=== PATIENT | female | born 1990 | race Caucasian/White ===

== ENCOUNTER 2017-11-27 21:57 | Emergency (ER) | payer OTHER ==
[~2017-11-27] VITALS: Ht 172.7 cm; Wt 136.5 kg
[2017-11-27 22:00] VITALS: BP 137/77
--- NOTE | 2017-11-27 23:39 | NUR ---
PATIENT TO ER BED 4.
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
[2017-11-28 03:20] LABS: BARBITURATE, URINE NEG. ng/ml (NEG <=200); BENZODIAZEPINE, URINE NEG. ng/mL (NEG <=200); CANNABINOID, URINE NEG. ng/mL (NEG <=50); COCAINE, URINE NEG. ng/mL (NEG <=300); OPIATE, URINE NEG. ng/mL (NEG <=2000); PHENCYCLIDINE SCREEN,URINE NEG. ng/mL (NEG <=25)
[2017-11-28 04:27] VITALS: BP 112/66
== END 2017-11-28 04:25 | disposition home or self-care (01) ==
LOC: MED 21:57
DX: F41.0 Panic disorder [episodic paroxysmal anxiety] (principal)
CPT/HCPCS: 80305; 99283

== ENCOUNTER 2018-10-18 22:58 | Emergency (ER) | payer OTHER ==
[~2018-10-18] VITALS: Ht 172.7 cm; Wt 145.4 kg
[2018-10-18 23:01] VITALS: BP 107/60
--- NOTE | 2018-10-18 23:01 | NUR ---
TO BED # 04 AMBULATORY
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
--- NOTE | 2018-10-18 23:22 | NUR ---
Dr. Bustillo examining patient.
[2018-10-18] MEDS ORDERED: IBUPROFEN 800 MG TAB PO ONE (23:30)
[2018-10-18] MEDS ORDERED: SULFAMETH/TRIMETH DS 800/160MG 1 TAB PO ONE (23:30)
--- NOTE | 2018-10-18 23:40 | NUR ---
Patient discharged with v/s stable. Written and verbal after care instructions given and explained. Patient alert, oriented and verbalized understanding of instructions. Ambulatory with steady gait. All questions addressed prior to discharge. ID band removed. Patient advised to follow up with PMD. Rx of motrin and bactrim given. Patient educated on indication of medication including possible reaction and side effects. Opportunity to ask questions provided and answered.
[2018-10-18 23:41] VITALS: BP 107/60
== END 2018-10-18 23:40 | disposition home or self-care (01) ==
LOC: MED 22:58
DX: S40.862A Insect bite (nonvenomous) of left upper arm, initial encounter (principal); L03.114 Cellulitis of left upper limb; J45.909 Unspecified asthma, uncomplicated; W57.XXXA Bitten or stung by nonvenomous insect and other nonvenomous arthropods, initial encounter; Y93.89 Activity, other specified; Y92.89 Other specified places as the place of occurrence of the external cause; Y99.8 Other external cause status
CPT/HCPCS: 99283

== ENCOUNTER 2020-07-20 22:45 | Emergency (ER) | payer MEDICAID, OTHER ==
[~2020-07-20] VITALS: Ht 172.7 cm; Wt 152.4 kg
[2020-07-20 23:01] VITALS: BP 152/98
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
--- NOTE | 2020-07-20 23:32 | NUR ---
ERMD AT BEDSIDE.
[2020-07-20] MEDS ORDERED: ALBUTEROL SULFATE/IPRATROPIU 3 ML SOL IH ONE (23:35)
--- NOTE | 2020-07-20 23:37 | NUR ---
RT AT BEDSIDE.
--- NOTE | 2020-07-20 23:57 | NUR ---
REEVALUATED PATIENT, BILATERAL BREATH SOUNDS CLEAR, NO NOTED COUGHING AT THIS TIME, PATIENT STATES "THE MEDICINE HELPED A LOT."
--- NOTE | 2020-07-21 00:06 | NUR ---
XRAY AT BEDSIDE.
--- NOTE | 2020-07-21 00:23 | NUR ---
EH SWAB COLLECTED VIA NARES AND TAKEN TO LAB, HAND GIVEN TO MARILU OLIVO TECH.
[2020-07-21] MEDS ORDERED: ACETAMIN/CODEINE 120/12MG-5ML 5 ML UDC PO ONE (00:25)
--- NOTE | 2020-07-21 00:25 | NUR ---
PATIENT REPORTS "MY CHEST STILL HURTS", PAIN IDENTIFIED WHEN CHEST WAS PALPATED. ERMD MADE AWARE WITH NEW ORDERS.
--- NOTE | 2020-07-21 00:47 | NUR ---
PATIENT AMBULATED TO RESTROOM WITH STEADY GAIT. UPON RETURN TO BEDROOM PATIENT DENIES SOB, STATING "I FEEL A LITTLE BETTER." VSS.
[2020-07-21] MEDS ORDERED: ROBAC PO (01:05)
[2020-07-21] MEDS ORDERED: ALBU0.0912 IH (01:05)
[2020-07-21 01:20] VITALS: BP 138/73
--- NOTE | 2020-07-21 01:20 | NUR ---
Patient discharged with v/s stable. Written and verbal after care instructions given and explained. Patient alert, oriented and verbalized understanding of instructions. Ambulatory with steady gait. All questions addressed prior to discharge. ID band removed. Patient advised to follow up with PMD. Rx of ALBUTEROL SULFATE, CODEINE PHOSPHATE/GUAIFENESI given. Patient educated on indication of medication including possible reaction and side effects. Opportunity to ask questions provided and answered.
== END 2020-07-21 01:20 | disposition home or self-care (01) ==
LOC: MED 22:45
DX: J20.9 Acute bronchitis, unspecified (principal); J45.909 Unspecified asthma, uncomplicated; Z79.899 Other long term (current) drug therapy; Z20.822 Contact with and (suspected) exposure to COVID-19
CPT/HCPCS: 71045; 94640; 99285

== ENCOUNTER 2020-08-24 22:34 | Emergency (ER) | payer MEDICAID ==
[~2020-08-24] VITALS: Ht 175.3 cm; Wt 152.9 kg
[~2020-08-24 22:34] MED LIST: ALBU0.0912 IH; ROBAC PO
[2020-08-24 22:58] VITALS: BP 123/98
--- NOTE | 2020-08-24 22:58 | NUR ---
TO BED AMBULATORY
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
--- NOTE | 2020-08-24 23:45 | NUR ---
ERMD AT BEDSIDE.
[2020-08-25] MEDS: HYDROcodone/APAP 5/325 MG 1 TAB TAB PO ONE (00:12)
[2020-08-25] MEDS: IBUPROFEN 600 MG TAB PO ONE (00:12)
--- NOTE | 2020-08-25 00:12 | NUR ---
RAD AT BEDSIDE
--- NOTE | 2020-08-25 00:29 | NUR ---
PT AMBULATED TO RESTROOM WITH STEADY GAIT.
[2020-08-25 01:47] VITALS: BP 140/76
--- NOTE | 2020-08-25 01:48 | NUR ---
Patient discharged with v/s stable. Written and verbal after care instructions given and explained. Patient verbalized understanding. Ambulatory with steady gait. All questions addressed prior to discharge. Advised to follow up with PMD.
== END 2020-08-25 01:48 | disposition home or self-care (01) ==
LOC: MED 22:34
DX: S50.811A Abrasion of right forearm, initial encounter (principal); S80.211A Abrasion, right knee, initial encounter; M25.532 Pain in left wrist; V89.9XXA Person injured in unspecified vehicle accident, initial encounter; Y93.89 Activity, other specified; Y92.89 Other specified places as the place of occurrence of the external cause; Y99.8 Other external cause status
CPT/HCPCS: 73090; 73110; 73562; 73590; 99283

== ENCOUNTER 2021-11-02 22:54 | Emergency (ER) | payer MEDICAID ==
[~2021-11-02] VITALS: Ht 172.7 cm; Wt 159.7 kg
[2021-11-02 22:56] VITALS: BP 165/86
--- NOTE | 2021-11-02 23:00 | NUR ---
Dr. Tristan examining patient.
[2021-11-02] MEDS ORDERED: KETOROLAC 60 MG/2 ML VIAL IM ONE (23:05)
[2021-11-02] MEDS ORDERED: COLC0.6C PO (23:57)
[2021-11-02] MEDS ORDERED: ALLO300T28 PO (23:57)
[2021-11-02] MEDS ORDERED: NAPR-54 PO (23:57)
--- NOTE | 2021-11-03 00:05 | NUR ---
patient cleared for discharge by . Discharge instructions and medication adminstration/side effects explained by Dr. Tristan. Rx ALLOPURINOL, COLCHICINE, AND NAPROXEN of provided.
== END 2021-11-03 00:05 | disposition home or self-care (01) ==
LOC: MED 22:54
DX: M10.9 Gout, unspecified (principal); J45.909 Unspecified asthma, uncomplicated
CPT/HCPCS: 96372; 99283; J1885